=== PATIENT | male | born 1975 | race Caucasian/White ===

== ENCOUNTER 2017-02-26 07:41 | Emergency (ER) | payer BC ==
[2017-02-26 07:54] VITALS: BP 113/79
--- NOTE | 2017-02-26 08:09 | UC ---
Ear Complaint HPI - HPI Summary HPI Summary: right ear plugged/decreased hearing since swimming yesterday - History of Current Complaint Chief Complaint: UCEar Stated Complaint: RIGHT EAR COMPLAINT Time Seen by Provider: 02/26/17 07:59 Hx Obtained From: Patient Onset/Duration: Sudden Onset Severity Initially: Mild Severity Currently: Mild Pain Intensity: 0 Pain Scale Used: 0-10 Numeric Associated Signs/Symptoms: Positive: Hearing Loss Related History: Prior ENT Surgery, T & A - Allergies/Home Medications Allergies/Adverse Reactions: Allergies Allergy/AdvReac Type Severity Reaction Status Date / Time No Known Allergies Allergy Verified 02/26/17 07:55 Home Medications: Home Medications Escitalopram Oxalate [Lexapro 10 mg] 5 mg PO DAILY 02/26/17 [History Confirmed 02/26/17] PMH/Surg Hx/FS Hx/Imm Hx Previously Healthy: Yes - Surgical History Surgical History: Yes Surgery Procedure, Year, and Place: tonsils - Family History Known Family History: Positive: Cardiac Disease, Hypertension, Diabetes - Social History Alcohol Use: Occasionally Substance Use Type: None Smoking Status (MU): Never Smoked Tobacco Review of Systems Constitutional: Negative Skin: Negative Eyes: Negative ENT: Other - decreased hearing right Respiratory: Negative Cardiovascular: Negative Gastrointestinal: Negative Genitourinary: Negative Motor: Negative Neurovascular: Negative Musculoskeletal: Negative Neurological: Negative Psychological: Negative All Other Systems Reviewed And Are Negative: Yes Physical Exam Triage Information Reviewed: Yes Appearance: Well-Appearing, No Pain Distress, Well-Nourished Vital Signs: Initial Vital Signs Temp 98.2 F 02/26/17 07:50 Pulse 68 02/26/17 07:50 Resp 16 02/26/17 07:50 BP 113/79 02/26/17 07:50 Vital Signs Reviewed: Yes Eyes: Positive: Conjunctiva Clear ENT: Positive: TMs normal - left normal, right unable to visualize due to cerumen. Negative: Hearing grossly normal, Nasal congestion, Nasal drainage, Trismus, Muffled/hoarse voice Neck: Positive: Supple, Nontender, No Lymphadenopathy Respiratory: Positive: Lungs clear, Normal breath sounds, No respiratory distress, No accessory muscle use Cardiovascular: Positive: RRR, No Murmur Musculoskeletal: Positive: ROM Intact, No Edema Neurological: Positive: Alert Psychological Exam: Normal Skin Exam: Normal Re-Evaluation - Re-Evaluation First Eval Re-Evaluation Time: 08:30 Change: Improved - tm normal after flush/hearing back to normal Ear Complaint Course/Dx - Course Course Of Treatment: right TM normal after flush - Differential Dx/Diagnosis Provider Diagnoses: cerumen impaction right ear Discharge - Discharge Plan Condition: Stable Disposition: HOME Patient Education Materials: Cerumen Impaction (ED) Referrals: Raisa Nguyen MD [Primary Care Provider] - If Needed Additional Instructions: call for any questions return for any problems
== END 2017-02-26 08:38 | disposition home or self-care (01) ==
LOC: UCCORT 07:41
DX: H61.21 Impacted cerumen, right ear (principal)
CPT/HCPCS: 99202; G0463

== ENCOUNTER 2018-07-05 17:23 | Emergency (ER) | payer BC ==
[2018-07-05 20:17] VITALS: BP 149/91
[2018-07-05] MEDS ORDERED: predniSONE TAB* 20 MG PO ONE (20:46)
--- NOTE | 2018-07-05 20:49 | UC ---
Respiratory Complaint HPI - HPI Summary HPI Summary: C/O fevers, fatigue, headache, coughing x 4 days. Bodyaches. Similar illness in the house - History of Current Complaint Chief Complaint: UCGeneralIllness Stated Complaint: FEVER/FATIGUE/HEADACHE/ACHY Time Seen by Provider: 07/05/18 20:35 Hx Obtained From: Patient Onset/Duration: Sudden Onset, Lasting Days - 4, Still Present Timing: Constant Severity Initially: Mild Severity Currently: Moderate Pain Intensity: 0 Character: Cough: Nonproductive Alleviating Factors: Nothing Associated Signs And Symptoms: Positive: Fever, Wheezing, URI, Nasal Congestion Related History: Seasonal Allergies - Allergies/Home Medications Allergies/Adverse Reactions: Allergies Allergy/AdvReac Type Severity Reaction Status Date / Time No Known Allergies Allergy Verified 07/05/18 20:14 Home Medications: Home Medications Ibuprofen TAB* [Advil TAB*] 200 mg PO Q6H PRN 07/05/18 [History Confirmed ] Levothyroxine TAB* [Synthroid 25 MCG TAB*] 25 mcg PO DAILY 07/05/18 [History Confirmed 07/05/18] PMH/Surg Hx/FS Hx/Imm Hx Endocrine History: Hypothyroidism Psychological History: Anxiety - Surgical History Surgical History: Yes Surgery Procedure, Year, and Place: tonsils - Family History Known Family History: Positive: Cardiac Disease, Hypertension, Diabetes - Social History Occupation: Employed Full-time Lives: With Family Alcohol Use: Rare Substance Use Type: None Smoking Status (MU): Never Smoked Tobacco Review of Systems All Other Systems Reviewed And Are Negative: Yes Constitutional: Positive: Fever, Fatigue Respiratory: Positive: Cough Neurological: Positive: Headache Is Patient Immunocompromised?: No Physical Exam Triage Information Reviewed: Yes Appearance: No Pain Distress, Well-Nourished, Ill-Appearing Vital Signs: Initial Vital Signs Temp 97.2 F 07/05/18 20:12 Pulse 105 07/05/18 20:12 Resp 16 07/05/18 20:12 BP 149/91 07/05/18 20:12 Pulse Ox 98 07/05/18 20:12 Vital Signs Reviewed: Yes Eyes: Positive: Conjunctiva Clear ENT: Positive: Pharynx normal, Nasal congestion, TMs normal Neck exam: Normal Respiratory: Positive: Wheezing - expiratory wheeze with coughing. Cardiovascular Exam: Normal Musculoskeletal Exam: Normal Neurological Exam: Normal Psychological Exam: Normal Skin Exam: Normal UC Diagnostic Evaluation - Laboratory O2 Sat by Pulse Oximetry: 98 Respiratory Course/Dx - Differential Dx/Diagnosis Differential Diagnosis/HQI/PQRI: Asthma, Lower Resp Infection, Sinusitis Provider Diagnoses: Acute URI. Acute bronchospasm Discharge - Sign-Out/Discharge Documenting (check all that apply): Patient Departure All imaging exams completed and their final reports reviewed: No Studies - Discharge Plan Condition: Stable Disposition: HOME Prescriptions: predniSONE TAB* [Deltasone 20 MG TAB*] 60 mg PO DAILY #18 tab Patient Education Materials: Upper Respiratory Infection (DC), Wheezing (ED), Prednisone (By mouth) Referrals: Raisa Nguyen MD [Primary Care Provider] - - Billing Disposition and Condition Condition: STABLE Disposition: Home
== END 2018-07-05 20:57 | disposition home or self-care (01) ==
LOC: UCCORT 17:23
DX: J06.9 Acute upper respiratory infection, unspecified (principal); J98.01 Acute bronchospasm
CPT/HCPCS: 99212; G0463; J7512